=== PATIENT | female | born 1980 | race Caucasian/White ===

== ENCOUNTER 2017-01-04 10:41 | Emergency (ER) | payer OTHER ==
--- NOTE | 2017-01-04 14:33 | DIAGNOSTIC IMAGING REPORT ---
PROCEDURE: CT HEAD WITHOUT CONTRAST INDICATION: PAIN TECHNIQUE: Noncontrast axial images with sagittal and coronal reformations. COMPARISON: None. FINDINGS: Sulci, ventricular system, and brain parenchyma are normal. No evidence of acute intracranial process. Visualized mastoids and sinuses are clear. IMPRESSION: 1. Negative non-enhanced head CT. 2. Findings called to the emergency room at 02:30 p.m., [place] Standard Time
--- NOTE | 2017-01-04 14:52 | ED ORDER SUMMARY ---
..... Patient: EARLENE RICKS OrderSheet [facility] VisitID: [id number] [address] [place] [address] 36y, F Registration Date/Time: 01/04/2017 ORDER SHEET Weight: 64.8 kg (measured) Allergies: No Known Drug Allergy GENERAL ORDERS: Vitals (13:39 01/04/2017 EKoroleva P.A.-C) (14:10 EHassan R.N.) CT Head wo Cont Urgent (14:02 01/04/2017 EKoroleva P.A.-C) (Ack 14:06 Abdias) (14:14 EHassan R.N.) POC - Urine hCG (14:05 01/04/2017 EKoroleva P.A.-C) (14:10 EHassan R.N.) MEDICATION ORDERS: Phenergan IV 12.5 mg (HIGH ALERT MEDICATION, NOW) (13:28 01/04/2017 EKoroleva P.A.-C) (14:10 EHassan R.N.) IV FLUIDS: IV NS with Normal Saline 1 Liter: initial bolus 1000 mL (1000 mL/hr), then 1000 mL/hr for X1 (NOW) (11:34 01/04/2017 EHassan R.N. per protocol) (11:35 EHassan R.N.) Zofran IV 4 mg (NOW) (11:34 01/04/2017 EHassan R.N. per protocol) (11:36 EHassan R.N.) IV Saline Lock (11:35 01/04/2017 EHassan R.N. per protocol) (11:35 EHassan R.N.) Toradol IV 30 mg (NOW) (12:46 01/04/2017 EHassan R.N. verbal order read back to Pranay BRUK) (12:47 EHassan R.N.) Benadryl IV 25 mg (NOW) (13:39 01/04/2017 EKoroleva P.A.-C) (14:11 EHassan R.N.) Ativan IV 1 mg (HIGH ALERT MEDICATION, NOW) (13:39 01/04/2017 Kerry Gustafson) (14:11 Junior Lewis) Dilaudid IV 0.5 mg (HIGH ALERT MEDICATION, NOW) (14:39 01/04/2017 Kerry Gustafson) (Ack 14:45 Viviana R.N.) (Cancelled: Other14:49 Viviana Montes.Wes) ORDER SHEET NOTES: [Electronically signed by Sybil Flowers P.A.-C (18:03 01/04/2017)] [Electronically signed by Mary Randall R.N. (18:43 01/04/2017)] [Electronically locked/signed by Mary Randall R.N. (18:43 01/04/2017)]
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
--- NOTE | 2017-01-04 14:52 | ED ORDER SUMMARY ---
..... Patient: EARLENE RICKS OrderSheet [facility] VisitID: [id number] [address] [place] [address] 36y, F Registration Date/Time: 01/04/2017 ORDER SHEET Weight: 64.8 kg (measured) Allergies: No Known Drug Allergy GENERAL ORDERS: Vitals (13:39 01/04/2017 EKoroleva P.A.-C) (14:10 EHassan R.N.) CT Head wo Cont Urgent (14:02 01/04/2017 EKoroleva P.A.-C) (Ack 14:06 Abdias) (14:14 EHassan R.N.) POC - Urine hCG (14:05 01/04/2017 EKoroleva P.A.-C) (14:10 EHassan R.N.) MEDICATION ORDERS: Phenergan IV 12.5 mg (HIGH ALERT MEDICATION, NOW) (13:28 01/04/2017 EKoroleva P.A.-C) (14:10 EHassan R.N.) IV FLUIDS: IV NS with Normal Saline 1 Liter: initial bolus 1000 mL (1000 mL/hr), then 1000 mL/hr for X1 (NOW) (11:34 01/04/2017 EHassan R.N. per protocol) (11:35 EHassan R.N.) Zofran IV 4 mg (NOW) (11:34 01/04/2017 EHassan R.N. per protocol) (11:36 EHassan R.N.) IV Saline Lock (11:35 01/04/2017 EHassan R.N. per protocol) (11:35 EHassan R.N.) Toradol IV 30 mg (NOW) (12:46 01/04/2017 EHassan R.N. verbal order read back to Pranay BURK) (12:47 EHassan R.N.) Benadryl IV 25 mg (NOW) (13:39 01/04/2017 EKoroleva P.A.-C) (14:11 EHassan R.N.) Ativan IV 1 mg (HIGH ALERT MEDICATION, NOW) (13:39 01/04/2017 Kerry Gustafson) (14:11 Junior Lewis) Dilaudid IV 0.5 mg (HIGH ALERT MEDICATION, NOW) (14:39 01/04/2017 Kerry Gustafson) (Ack 14:45 Viviana R.N.) (Cancelled: Other14:49 Viviana Montes.Wes) ORDER SHEET NOTES: [Electronically signed by Sybil Flowers P.A.-C (18:03 01/04/2017)] [Electronically signed by Mary Randall R.N. (18:43 01/04/2017)] [Electronically locked/signed by Mary Randall R.N. (18:43 01/04/2017)]
--- NOTE | 2017-01-04 18:43 | ED DISCHARGE INSTRUCTIONS ---
Patient: EARLENE RICKS General Instructions [facility] VisitID: [id number] [place] [address] 36y, F Registration Date/Time: 01/04/2017 Chronic headache. INSTRUCTIONS (Neurology [phone]). Warnings: Further evaluation is necessary. Prescription Medications: Zofran (orally disintegrating tablets) 4 mg: take 1 orally every 6 hours for 3 days as needed for nausea. Dispense ten (10). Substitution is permissible. Fioricet: take 1-2 orally every 6 hours as needed for pain. Dispense fifteen (15). No refills. Substitution is permissible. Follow-up: Follow up with your doctor in three days. ADDITIONAL INFORMATION Headache [Unspecified] The cause of your headache today is not clear, but it does not appear to be the sign of any serious illness. Under stress, some people tense the muscles of their shoulder, neck and scalp without knowing it. If this condition lasts long enough, a TENSION HEADACHE can occur. A MIGRAINE HEADACHE is caused by changes in blood flow to the brain. A migraine attack may be triggered by emotional stress, hormone changes during the menstrual cycle, oral contraceptives, alcohol use, certain foods containing tyramine, eye strain, weather changes, missing meals, lack of sleep or oversleeping. Other causes of headache include a viral illness with high fever, head injury with concussion, sinus, ear or throat infection, dental pain and TMJ (jaw joint) pain. More serious but less common causes of headache include stroke, brain hemorrhage, brain tumor, meningitis and encephalitis. Home Care: If you were given pain medicine for this headache, do not drive yourself home. Arrange for a ride, instead. When you get home, try to sleep. You should feel much better when you wake up. Apply heat to the back of your neck to relieve neck muscle spasm. Migraine headaches may respond best to an ice pack on the forehead or at the base of the skull. If you are having nausea or vomiting, follow a light diet until your headache is relieved. If you have a migraine type headache, use sunglasses when in the daylight or around bright indoor lighting until symptoms improve. Bright glaring light can worsen this kind of headache. Follow Up with your doctor if the headache is not better within the next 24 hours. If you have frequent headaches you should discuss a treatment plan with your primary care doctor. By being aware of the earliest signs of headache, and starting treatment right away, you may be able to stop the pain yourself. Get Prompt Medical Attention if any of the following occur: Worsening of your head pain or no improvement within 24 hours Repeated vomiting (unable to keep liquids down) Fever of 100.4F (38C) or higher, or as directed by your healthcare provider Stiff neck Extreme drowsiness, confusion or fainting Dizziness, vertigo (dizziness with spinning sensation) Weakness of an arm or leg or one side of the face Difficulty with speech or vision Butalbital, Acetaminophen, Caffeine Oral tablet What is this medicine? ACETAMINOPHEN; BUTALBITAL; CAFFEINE (a set a PAIGE tete fen; byoo DRAKE bi drake; KAF een) is a pain reliever. It is used to treat tension headaches. How should I use this medicine? Take this medicine by mouth with a full glass of water. Follow the directions on the prescription label. If the medicine upsets your stomach, take the medicine with food or milk. Do not take more than you are told to take. Talk to your strategic solutions consultant regarding the use of this medicine in children. Special care may be needed. What side effects may I notice from receiving this medicine? Side effects that you should report to your doctor or health vision care associate as soon as possible: allergic reactions like skin rash, itching or hives, swelling of the face, lips, or tongue breathing problems confusion feeling faint or lightheaded, falls redness, blistering, peeling or loosening of the skin, including inside the mouth seizure stomach pain yellowing of the eyes or skin Side effects that usually do not require medical attention (report to your doctor or health vision care associate if they continue or are bothersome): constipation nausea, vomiting What may interact with this medicine? alcohol or medicines that contain alcohol antidepressants, especially MAOIs like isocarboxazid, phenelzine, tranylcypromine, and selegiline antihistamines benzodiazepines carbamazepine isoniazid medicines for pain like pentazocine, buprenorphine, butorphanol, nalbuphine, tramadol, and propoxyphene muscle relaxants naltrexone phenobarbital, phenytoin, and fosphenytoin phenothiazines like perphenazine, thioridazine, chlorpromazine, mesoridazine, fluphenazine, prochlorperazine, promazine, and trifluoperazine voriconazole What if I miss a dose? If you miss a dose, take it as soon as you can. If it is almost time for your next dose, take only that dose. Do not take double or extra doses. Where should I keep my medicine? Keep out of the reach of children. This medicine can be abused. Keep your medicine in a safe place to protect it from theft. Do not share this medicine with anyone. Selling or giving away this medicine is dangerous and against the law. Store at room temperature between 15 and 30 degrees C (59 and 86 degrees F). Keep container tightly closed. Protect from light. Throw away any unused medicine after the expiration date. What should I tell my health care provider before I take this medicine? They need to know if you have any of these conditions: drink more than 3 alcohol-containing drinks per day drug abuse or addiction heart or circulation problems kidney disease or problems going to the bathroom liver disease lung disease, asthma, or breathing problems porphyria an unusual or allergic reaction to acetaminophen, butalbital or other barbiturates, caffeine, other medicines, foods, dyes, or preservatives or trying to get breast-feeding What should I watch for while using this medicine? Tell your doctor or health vision care associate if your pain does not go away, if it gets worse, or if you have new or a different type of pain. You may develop tolerance to the medicine. Tolerance means that you will need a higher dose of the medicine for pain relief. Tolerance is normal and is expected if you take the medicine for a long time. Do not suddenly stop taking your medicine because you may develop a severe reaction. Your body becomes used to the medicine. This does NOT mean you are addicted. Addiction is a behavior related to getting and using a drug for a non-medical reason. If you have pain, you have a medical reason to take pain medicine. Your doctor will tell you how much medicine to take. If your doctor wants you to stop the medicine, the dose will be slowly lowered over time to avoid any side effects. You may get drowsy or dizzy when you first start taking the medicine or change doses. Do not drive, use machinery, or do anything that may be dangerous until you know how the medicine affects you. Stand or sit up slowly. Do not take other medicines that contain acetaminophen with this medicine. Always read labels carefully. If you have questions, ask your doctor or pharmacist. If you take too much acetaminophen get medical help right away. Too much acetaminophen can be very dangerous and cause liver damage. Even if you do not have symptoms, it is important to get help right away. You have been given the following additional information: Headache, Unspecified Butalbital, Acetaminophen, Caffeine Oral tablet (Electronically signed by Sybil Flowers P.A.-C 01/04/2017 18:03)
--- NOTE | 2017-01-04 18:43 | ED MAR SUMMARY ---
..... Medication Administration Record [facility] [address] [place] [address] Patient: EARLENE RICKS Visit ID: [id number] 36y, F Weight: 64.8 kg Height/Length: 63 in BMI: 25.3 ALLERGIES: No Known Drug Allergy Start 11:30 01/04/2017 Mary Randall R.N., Stop 12:46 01/04/2017 Mary Randall R.N. Medication Administered: IV NS (SALINE), Dose: IV Fluids over 1 hour(s), Rate: 1000 mL/hr, Dispensed: 1000 mL bag, Site: #1 right AC. Medication Ordered: IV NS with Normal Saline 1 Liter: initial bolus 1000 mL (1000 mL/hr), then 1000 mL/hr for X1 (NOW). Given 11:36 01/04/2017 Mary Randall R.N. Medication Administered: ZOFRAN [IVP] (ONDANSETRON HCL), Dose: 4 mg IVP over 2 minute(s), Site: #1 right AC. Medication Ordered: Zofran IV 4 mg (NOW). Given 12:47 01/04/2017 Mary Randall R.N. Medication Administered: TORADOL [IVP], Dose: 30 mg IVP over 30 second(s), Site: #1 right AC. Medication Ordered: Toradol IV 30 mg (NOW). Given 14:05 01/04/2017 Mary Randall R.N. Medication Administered: PHENERGAN [IVP] (PROMETHAZINE HCL), Dose: 12.5 mg IVP over 30 second(s), Site: #1 right AC. Medication Ordered: Phenergan IV 12.5 mg (HIGH ALERT MEDICATION, NOW). Given 14:11 01/04/2017 Mary Randall R.N. Medication Administered: BENADRYL [IVP] (DIPHENHYDRAMINE HCL), Dose: 25 mg IVP over 30 second(s), Site: #1 right AC. Medication Ordered: Benadryl IV 25 mg (NOW). Given 14:11 01/04/2017 Mary Randall R.N. Medication Administered: ATIVAN [IVP] (LORAZEPAM), Dose: 1 mg IVP over 30 second(s), Site: #1 right AC. Medication Ordered: Ativan IV 1 mg (HIGH ALERT MEDICATION, NOW).
--- NOTE | 2017-01-04 18:43 | ED DISCHARGE INSTRUCTIONS ---
Patient: EARLENE RICKS General Instructions [facility] VisitID: [id number] [place] [address] 36y, F Registration Date/Time: 01/04/2017 Chronic headache. INSTRUCTIONS (Neurology [phone]). Warnings: Further evaluation is necessary. Prescription Medications: Zofran (orally disintegrating tablets) 4 mg: take 1 orally every 6 hours for 3 days as needed for nausea. Dispense ten (10). Substitution is permissible. Fioricet: take 1-2 orally every 6 hours as needed for pain. Dispense fifteen (15). No refills. Substitution is permissible. Follow-up: Follow up with your doctor in three days. ADDITIONAL INFORMATION Headache [Unspecified] The cause of your headache today is not clear, but it does not appear to be the sign of any serious illness. Under stress, some people tense the muscles of their shoulder, neck and scalp without knowing it. If this condition lasts long enough, a TENSION HEADACHE can occur. A MIGRAINE HEADACHE is caused by changes in blood flow to the brain. A migraine attack may be triggered by emotional stress, hormone changes during the menstrual cycle, oral contraceptives, alcohol use, certain foods containing tyramine, eye strain, weather changes, missing meals, lack of sleep or oversleeping. Other causes of headache include a viral illness with high fever, head injury with concussion, sinus, ear or throat infection, dental pain and TMJ (jaw joint) pain. More serious but less common causes of headache include stroke, brain hemorrhage, brain tumor, meningitis and encephalitis. Home Care: If you were given pain medicine for this headache, do not drive yourself home. Arrange for a ride, instead. When you get home, try to sleep. You should feel much better when you wake up. Apply heat to the back of your neck to relieve neck muscle spasm. Migraine headaches may respond best to an ice pack on the forehead or at the base of the skull. If you are having nausea or vomiting, follow a light diet until your headache is relieved. If you have a migraine type headache, use sunglasses when in the daylight or around bright indoor lighting until symptoms improve. Bright glaring light can worsen this kind of headache. Follow Up with your doctor if the headache is not better within the next 24 hours. If you have frequent headaches you should discuss a treatment plan with your primary care doctor. By being aware of the earliest signs of headache, and starting treatment right away, you may be able to stop the pain yourself. Get Prompt Medical Attention if any of the following occur: Worsening of your head pain or no improvement within 24 hours Repeated vomiting (unable to keep liquids down) Fever of 100.4F (38C) or higher, or as directed by your healthcare provider Stiff neck Extreme drowsiness, confusion or fainting Dizziness, vertigo (dizziness with spinning sensation) Weakness of an arm or leg or one side of the face Difficulty with speech or vision Butalbital, Acetaminophen, Caffeine Oral tablet What is this medicine? ACETAMINOPHEN; BUTALBITAL; CAFFEINE (a set a PAIGE tete fen; byoo DRAKE bi drake; KAF een) is a pain reliever. It is used to treat tension headaches. How should I use this medicine? Take this medicine by mouth with a full glass of water. Follow the directions on the prescription label. If the medicine upsets your stomach, take the medicine with food or milk. Do not take more than you are told to take. Talk to your hydro operator regarding the use of this medicine in children. Special care may be needed. What side effects may I notice from receiving this medicine? Side effects that you should report to your doctor or health career and technology education teacher as soon as possible: allergic reactions like skin rash, itching or hives, swelling of the face, lips, or tongue breathing problems confusion feeling faint or lightheaded, falls redness, blistering, peeling or loosening of the skin, including inside the mouth seizure stomach pain yellowing of the eyes or skin Side effects that usually do not require medical attention (report to your doctor or health career and technology education teacher if they continue or are bothersome): constipation nausea, vomiting What may interact with this medicine? alcohol or medicines that contain alcohol antidepressants, especially MAOIs like isocarboxazid, phenelzine, tranylcypromine, and selegiline antihistamines benzodiazepines carbamazepine isoniazid medicines for pain like pentazocine, buprenorphine, butorphanol, nalbuphine, tramadol, and propoxyphene muscle relaxants naltrexone phenobarbital, phenytoin, and fosphenytoin phenothiazines like perphenazine, thioridazine, chlorpromazine, mesoridazine, fluphenazine, prochlorperazine, promazine, and trifluoperazine voriconazole What if I miss a dose? If you miss a dose, take it as soon as you can. If it is almost time for your next dose, take only that dose. Do not take double or extra doses. Where should I keep my medicine? Keep out of the reach of children. This medicine can be abused. Keep your medicine in a safe place to protect it from theft. Do not share this medicine with anyone. Selling or giving away this medicine is dangerous and against the law. Store at room temperature between 15 and 30 degrees C (59 and 86 degrees F). Keep container tightly closed. Protect from light. Throw away any unused medicine after the expiration date. What should I tell my health care provider before I take this medicine? They need to know if you have any of these conditions: drink more than 3 alcohol-containing drinks per day drug abuse or addiction heart or circulation problems kidney disease or problems going to the bathroom liver disease lung disease, asthma, or breathing problems porphyria an unusual or allergic reaction to acetaminophen, butalbital or other barbiturates, caffeine, other medicines, foods, dyes, or preservatives or trying to get breast-feeding What should I watch for while using this medicine? Tell your doctor or health career and technology education teacher if your pain does not go away, if it gets worse, or if you have new or a different type of pain. You may develop tolerance to the medicine. Tolerance means that you will need a higher dose of the medicine for pain relief. Tolerance is normal and is expected if you take the medicine for a long time. Do not suddenly stop taking your medicine because you may develop a severe reaction. Your body becomes used to the medicine. This does NOT mean you are addicted. Addiction is a behavior related to getting and using a drug for a non-medical reason. If you have pain, you have a medical reason to take pain medicine. Your doctor will tell you how much medicine to take. If your doctor wants you to stop the medicine, the dose will be slowly lowered over time to avoid any side effects. You may get drowsy or dizzy when you first start taking the medicine or change doses. Do not drive, use machinery, or do anything that may be dangerous until you know how the medicine affects you. Stand or sit up slowly. Do not take other medicines that contain acetaminophen with this medicine. Always read labels carefully. If you have questions, ask your doctor or pharmacist. If you take too much acetaminophen get medical help right away. Too much acetaminophen can be very dangerous and cause liver damage. Even if you do not have symptoms, it is important to get help right away. You have been given the following additional information: Headache, Unspecified Butalbital, Acetaminophen, Caffeine Oral tablet (Electronically signed by Sybil Flowers P.A.-C 01/04/2017 18:03)
--- NOTE | 2017-01-04 18:43 | ED MED RECONCILIATION SUMMARY ---
Patient: EARLENE RICKS Medication Reconciliation Report [facility] VisitID: [id number] [address] [place] [address] 36y, F Registration Date/Time: 01/04/2017 Weight: 64.8 kg Height/Length: 63 in. BMI: 25.3 ALLERGIES: No Known Drug Allergy The patient's Home Medications are listed below: THE FOLLOWING MEDICATIONS NEED TO BE RECONCILED: Depression medicine- unsure of name The source(s) of the original Home Medication information: patient The following Medications were given to the patient in the Emergency Department: IV NS IV Fluids bolus 0, then 1000 mL/hr, administered: 01/04/2017 11:30:00 AM Zofran [IVP] IVP 4 mg, administered: 01/04/2017 11:36:00 AM Toradol [IVP] IVP 30 mg, administered: 01/04/2017 12:47:00 PM PHENERGAN [IVP] IVP 12.5 mg, administered: 01/04/2017 2:05:00 PM Benadryl [IVP] IVP 25 mg, administered: 01/04/2017 2:11:00 PM Ativan [IVP] IVP 1 mg, administered: 01/04/2017 2:11:00 PM The following Medications were prescribed to the patient: Zofran (orally disintegrating tablets) 4 mg: take 1 orally every 6 hours for 3 days as needed for nausea. Dispense ten (10). Substitution is permissible. -- Sybil Flowers, P.ANicole-Cody Fioricet: take 1-2 orally every 6 hours as needed for pain. Dispense fifteen (15). No refills. Substitution is permissible. -- Sybil Flowers, P.A.-C
--- NOTE | 2017-01-04 18:43 | ED MAR SUMMARY ---
..... Medication Administration Record [facility] [address] [place] [address] Patient: EARLENE RICKS Visit ID: [id number] 36y, F Weight: 64.8 kg Height/Length: 63 in BMI: 25.3 ALLERGIES: No Known Drug Allergy Start 11:30 01/04/2017 Mary Randall R.N., Stop 12:46 01/04/2017 Mary Randall R.N. Medication Administered: IV NS (SALINE), Dose: IV Fluids over 1 hour(s), Rate: 1000 mL/hr, Dispensed: 1000 mL bag, Site: #1 right AC. Medication Ordered: IV NS with Normal Saline 1 Liter: initial bolus 1000 mL (1000 mL/hr), then 1000 mL/hr for X1 (NOW). Given 11:36 01/04/2017 Mary Randall R.N. Medication Administered: ZOFRAN [IVP] (ONDANSETRON HCL), Dose: 4 mg IVP over 2 minute(s), Site: #1 right AC. Medication Ordered: Zofran IV 4 mg (NOW). Given 12:47 01/04/2017 Mary Randall R.N. Medication Administered: TORADOL [IVP], Dose: 30 mg IVP over 30 second(s), Site: #1 right AC. Medication Ordered: Toradol IV 30 mg (NOW). Given 14:05 01/04/2017 Mary Randall R.N. Medication Administered: PHENERGAN [IVP] (PROMETHAZINE HCL), Dose: 12.5 mg IVP over 30 second(s), Site: #1 right AC. Medication Ordered: Phenergan IV 12.5 mg (HIGH ALERT MEDICATION, NOW). Given 14:11 01/04/2017 Mary Randall R.N. Medication Administered: BENADRYL [IVP] (DIPHENHYDRAMINE HCL), Dose: 25 mg IVP over 30 second(s), Site: #1 right AC. Medication Ordered: Benadryl IV 25 mg (NOW). Given 14:11 01/04/2017 Mary Randall R.N. Medication Administered: ATIVAN [IVP] (LORAZEPAM), Dose: 1 mg IVP over 30 second(s), Site: #1 right AC. Medication Ordered: Ativan IV 1 mg (HIGH ALERT MEDICATION, NOW).
--- NOTE | 2017-01-04 18:43 | ED MED RECONCILIATION SUMMARY ---
Patient: EARLENE RICKS Medication Reconciliation Report [facility] VisitID: [id number] [address] [place] [address] 36y, F Registration Date/Time: 01/04/2017 Weight: 64.8 kg Height/Length: 63 in. BMI: 25.3 ALLERGIES: No Known Drug Allergy The patient's Home Medications are listed below: THE FOLLOWING MEDICATIONS NEED TO BE RECONCILED: Depression medicine- unsure of name The source(s) of the original Home Medication information: patient The following Medications were given to the patient in the Emergency Department: IV NS IV Fluids bolus 0, then 1000 mL/hr, administered: 01/04/2017 11:30:00 AM Zofran [IVP] IVP 4 mg, administered: 01/04/2017 11:36:00 AM Toradol [IVP] IVP 30 mg, administered: 01/04/2017 12:47:00 PM PHENERGAN [IVP] IVP 12.5 mg, administered: 01/04/2017 2:05:00 PM Benadryl [IVP] IVP 25 mg, administered: 01/04/2017 2:11:00 PM Ativan [IVP] IVP 1 mg, administered: 01/04/2017 2:11:00 PM The following Medications were prescribed to the patient: Zofran (orally disintegrating tablets) 4 mg: take 1 orally every 6 hours for 3 days as needed for nausea. Dispense ten (10). Substitution is permissible. -- Sybil Flowers, P.ANicole-Cody Fioricet: take 1-2 orally every 6 hours as needed for pain. Dispense fifteen (15). No refills. Substitution is permissible. -- Sybil Flowers, P.A.-C
== END 2017-01-04 12:00 | disposition home or self-care (01) ==
LOC: ED SRH 10:41
DX: R51 Headache (principal); G89.29 Other chronic pain